=== PATIENT | male | born 1970 | race African-American/Black ===

== ENCOUNTER 2018-03-07 15:23 | Emergency (ER) | payer OTHER ==
[~2018-03-07] VITALS: Ht 175.3 cm; Wt 117.8 kg
[2018-03-07 15:39] VITALS: BP 159/109
--- NOTE | 2018-03-07 15:47 | PHYS DOC ---
Past History Past Medical History: No Pertinent History Past Surgical History: No Surgical History Alcohol Use: None Drug Use: None Adult General Chief Complaint Chief Complaint: FLU SYMPTOM HPI HPI Patient is a 47-year-old male, with a history of "borderline hypertension", who presents to the emergency department for evaluation. He states for the past 5 days he has had nasal congestion, and a cough productive of clear sputum. He has not had any fever or any pain. He denies any significant shortness of breath , nausea, vomiting, otalgia, or shortness of breath. There are no alleviating, or exacerbating factors to his symptoms otherwise. Review of Systems Review of Systems Constitutional: Denies fever or chills [] Eyes: Denies change in visual acuity, redness, or eye pain [] HENT: Denies or sore throat. Does report nasal congestion. [] Respiratory: Denies or shortness of breath [] Cardiovascular:The patient denies any shortness of breath, chest pain, palpitations, or orthopnea [] GI: Denies abdominal pain, nausea, vomiting, bloody stools or diarrhea [] : Denies dysuria or hematuria [] Musculoskeletal: Denies back pain or joint pain [] Integument: Denies rash or skin lesions [] Neurologic: Denies headache, focal weakness or sensory changes [] Allergies Allergies Allergies Coded Allergies Type Severity Reaction Last Updated Verified No Known Drug Allergies 03/07/18 No Physical Exam Physical Exam PHYSICAL EXAM: CONSTITUTIONAL: Well developed, well nourished HEAD: normocephalic, atraumatic EENT: PERRL, EOMI. Conjunctivae normal color, sclerae non-icteric; moist mucous membranes. Tympanic membranes are normal bilaterally. Oropharynx is nonerythematous. Nasal congestion is present. NECK: Supple, non-tender; no meningismus. LUNGS: Lungs CTA, breathing even and unlabored. Normal air movement. HEART: Regular rate and rhythm, no murmur CHEST: No deformity; non-tender ABDOMEN: The abdomen is soft, and non-tender, no masses or bruits. EXTREM: Normal ROM; no deformity, no calf tenderness. Normal pulses palpable in all extremities. There is no pedal edema. SKIN: No rash; no diaphoresis NEURO: Alert; normal speech and cognition; CN's grossly intact; strength grossly intact without focal deficit. BACK: No CVA TTP. Current Patient Data Vital Signs Vital Signs Date Time Temp Pulse Resp B/P (MAP) Pulse Ox O2 Delivery O2 Flow Rate FiO2 03/07/18 15:39 98.3 90 18 95 Room Air EKG EKG [] Radiology/Procedures Radiology/Procedures ER physician preliminary chest x-ray interpretation: Questionable right lower lobe infiltrate.[] Course & Med Decision Making Course & Med Decision Making Discussed expectant management with the patient, the need for close PCP follow- up, and return precautions. I discussed the mildly elevated blood pressure and the need for further outpatient management and recheck of the patient's blood pressure. Dragon Disclaimer Dragon Disclaimer This electronic medical record was generated, in whole or in part, using a voice recognition dictation system. Departure Departure: Impression: Primary Impression: Upper respiratory infection Additional Impression: Pneumonia Disposition: 01 HOME, SELF-CARE Referrals: LALY ELLISON MD (PCP) Patient Instructions: Pneumonia, Adult, Upper Respiratory Infection, Adult Scripts Azithromycin (ZITHROMAX) 250 Mg Tablet 1 PKG PO UD, #6 TAB Prov: TITI MCGREGOR MD 03/07/18 Problem Qualifiers TITI MCGREGOR MD Mar 07, 2018 15:47
--- NOTE | 2018-03-07 15:57 | RAD ---
PA and lateral chest radiograph. History: Cough with weakness for 4-5 days. Comparison: None. Findings: There is suboptimal inspiration. Cardiomediastinal silhouette is within normal limits for size. Bilateral lung gracia appear clear without evidence of infiltrate, effusion, or pneumothorax. Impression: 1. No acute cardiopulmonary process. Electronically signed by: Ervin Burden MD (03/07/2018 3:54 PM) [facility]
[2018-03-07] MEDS ORDERED: AZIT250T PO (16:00)
== END 2018-03-07 16:11 | disposition home or self-care (01) ==
LOC: ER 15:23
DX: J18.9 Pneumonia, unspecified organism (principal); J06.9 Acute upper respiratory infection, unspecified
CPT/HCPCS: 71046; 99284

== ENCOUNTER → 2019-09-15 | Outpatient (CLI) | payer OTHER ==
[~2019-09-15] MED LIST: AZIT250T PO
--- NOTE | 2019-09-15 16:32 | RAD ---
EXAM: Abdomen, 2 views. HISTORY: Pain. COMPARISON: None. FINDINGS: 2 views of the abdomen are obtained. There is gas and moderate stool within the colon. No abnormally dilated loop of bowel is seen. There is no free air. There is no transition point to suggest obstruction. IMPRESSION: Nonobstructive bowel gas pattern. Moderate colonic stool. Electronically signed by: Bobbi Matthews MD (09/15/2019 4:29 PM) [id number]
== END | disposition home or self-care (01) ==
LOC: PMG 11:50
PROVIDERS: ATTEND Physician Assistant
DX: R10.9 Unspecified abdominal pain (principal); M54.5 Low back pain
CPT/HCPCS: 74019

== ENCOUNTER 2021-03-31 09:01 | Emergency (ER) | payer OTHER ==
[~2021-03-31] VITALS: Ht 175.3 cm; Wt 117.8 kg
[2021-03-31 09:12] VITALS: BP 153/84
[2021-03-31] MEDS ORDERED: IV NORMAL SALINE 1,000ML 1,000 ML IV ONE (09:30)
--- NOTE | 2021-03-31 09:38 | PHYS DOC ---
Past History Past Medical History: No Pertinent History (LILLIAM FLEMNIG APRN) Past Surgical History: No Surgical History (LILLIAM FLEMING APRN) Additional Smoking Information: Vapes Alcohol Use: None Drug Use: None (LILLIAM FLEMING APRN) General Adult EDM: Chief Complaint: ABDOMINAL PAIN HPI: HPI: Patient is a 50-year-old male who presents to the ER with bilateral lower abdominal pain that radiates to his right flank started today. Patient rates his pain 7 out of 10. He states that he is taking naproxen at home. He is also reporting dysuria and feeling like he is not completely emptying his bladder along with black stools. Patient denies nausea, vomiting, diarrhea, hematuria. He states that he does not have a history of kidney stones. (LILLIAM FLEMING APRN) Review of Systems: Review of Systems: 14 body systems of the review of systems have been reviewed. See HPI for pertinent positive and negative responses, otherwise all other systems are negative, nonpertinent or noncontributory (LILLIAM FLEMING APRN) Current Medications: Current Meds: Current Medications Medications (Trade) Dose Ordered Sig/Abbie Start Time Stop Time Status Last Admin Dose Admin Fentanyl Citrate (Fentanyl 2ml Vial) 50 mcg 1X ONCE 03/31/21 09:30 03/31/21 09:31 UNV Sodium Chloride 1,000 ml @ 1,000 mls/hr 1X ONCE 03/31/21 09:30 03/31/21 10:29 UNV (LILLIAM FLEMING APRN) Allergies: Allergies: Allergies Coded Allergies Type Severity Reaction Last Updated Verified No Known Drug Allergies 03/07/18 No (LILLIAM FLEMING APRN) Physical Exam: PE: Constitutional: Well developed, well nourished, no acute distress, non-toxic appearance. [] HENT: Normocephalic, atraumatic, bilateral external ears normal, oropharynx moist, no oral exudates, nose normal. [] Eyes: PERRLA, EOMI, conjunctiva normal, no discharge. [] Neck: Normal range of motion, no stridor Cardiovascular:Heart rate regular rhythm, no murmur [] Lungs & Thorax: Bilateral breath sounds clear to auscultation [] Abdomen: Bowel sounds normal, soft, obese, tenderness with palpation to bilateral lower abdomen, no masses, no pulsatile masses, no rebound tenderness, negative Aldridge sign, negative Rovsing sign. [] Skin: Warm, dry, no erythema, no rash. [] Back: No tenderness, right-sided CVA tenderness. [] Extremities: No tenderness, no cyanosis, no clubbing, ROM intact, no edema. [] Neurologic: Alert and oriented X 3, normal motor function, normal sensory function, no focal deficits noted. [] Psychologic: Affect normal, judgement normal, mood normal. [] (LILLIAM FLEMING APRN) Current Patient Data: Labs: Laboratory Tests Test 03/31/21 09:50 03/31/21 10:07 03/31/21 12:10 White Blood Count 8.6 x10^3/uL Red Blood Count 5.01 x10^6/uL Hemoglobin 13.6 g/dL Hematocrit 42.1 % Mean Corpuscular Volume 84 fL Mean Corpuscular Hemoglobin 27 pg Mean Corpuscular Hemoglobin Concent 32 g/dL Red Cell Distribution Width 13.5 % Platelet Count 280 x10^3/uL Neutrophils (%) (Auto) 57 % Lymphocytes (%) (Auto) 29 % Monocytes (%) (Auto) 7 % Eosinophils (%) (Auto) 7 % Basophils (%) (Auto) 1 % Neutrophils # (Auto) 4.9 x10^3uL Lymphocytes # (Auto) 2.4 x10^3/uL Monocytes # (Auto) 0.6 x10^3/uL Eosinophils # (Auto) 0.6 x10^3/uL Basophils # (Auto) 0.1 x10^3/uL Sodium Level 140 mmol/L Potassium Level 4.1 mmol/L Chloride Level 104 mmol/L Carbon Dioxide Level 25 mmol/L Anion Gap 11 Blood Urea Nitrogen 14 mg/dL Creatinine 0.9 mg/dL Estimated GFR (Cockcroft-Gault) 108.1 BUN/Creatinine Ratio 16 Glucose Level 105 mg/dL Calcium Level 9.7 mg/dL Total Bilirubin 0.3 mg/dL Aspartate Amino Transf (AST/SGOT) 16 U/L Alanine Aminotransferase (ALT/SGPT) 20 U/L Alkaline Phosphatase 137 U/L Total Protein 7.6 g/dL Albumin 3.7 g/dL Albumin/Globulin Ratio 0.9 Lipase 136 U/L Stool Occult Blood Negative Urine Collection Type Unknown Urine Color Yellow Urine Clarity Clear Urine pH 5.5 Urine Specific Colony 1.025 Urine Protein Neg Urine Glucose (UA) Neg mg/dL Urine Ketones (Stick) Neg mg/dL Urine Blood Neg Urine Nitrite Neg Urine Bilirubin Neg Urine Urobilinogen Dipstick 0.2 mg/dL Urine Leukocyte Esterase Neg Urine RBC 0 /HPF Urine WBC 0 /HPF Urine Bacteria 0 /HPF Current Medications Medications (Trade) Dose Ordered Sig/Abbie Route PRN Reason Start Time Stop Time Status Last Admin Dose Admin Sodium Chloride 1,000 ml @ 1,000 mls/hr 1X ONCE IV 03/31/21 09:30 03/31/21 10:29 DC 03/31/21 10:54 Fentanyl Citrate (Fentanyl 2ml Vial) 50 mcg 1X ONCE IVP 03/31/21 09:30 03/31/21 09:36 DC Laboratory Tests Test 03/31/21 09:50 03/31/21 10:07 White Blood Count 8.6 x10^3/uL Red Blood Count 5.01 x10^6/uL Hemoglobin 13.6 g/dL Hematocrit 42.1 % Mean Corpuscular Volume 84 fL Mean Corpuscular Hemoglobin 27 pg Mean Corpuscular Hemoglobin Concent 32 g/dL Red Cell Distribution Width 13.5 % Platelet Count 280 x10^3/uL Neutrophils (%) (Auto) 57 % Lymphocytes (%) (Auto) 29 % Monocytes (%) (Auto) 7 % Eosinophils (%) (Auto) 7 % Basophils (%) (Auto) 1 % Neutrophils # (Auto) 4.9 x10^3uL Lymphocytes # (Auto) 2.4 x10^3/uL Monocytes # (Auto) 0.6 x10^3/uL Eosinophils # (Auto) 0.6 x10^3/uL Basophils # (Auto) 0.1 x10^3/uL Sodium Level 140 mmol/L Potassium Level 4.1 mmol/L Chloride Level 104 mmol/L Carbon Dioxide Level 25 mmol/L Anion Gap 11 Blood Urea Nitrogen 14 mg/dL Creatinine 0.9 mg/dL Estimated GFR (Cockcroft-Gault) 108.1 BUN/Creatinine Ratio 16 Glucose Level 105 mg/dL Calcium Level 9.7 mg/dL Total Bilirubin 0.3 mg/dL Aspartate Amino Transf (AST/SGOT) 16 U/L Alanine Aminotransferase (ALT/SGPT) 20 U/L Alkaline Phosphatase 137 U/L Total Protein 7.6 g/dL Albumin 3.7 g/dL Albumin/Globulin Ratio 0.9 Lipase 136 U/L Stool Occult Blood Negative Current Medications Medications (Trade) Dose Ordered Sig/Abbie Route PRN Reason Start Time Stop Time Status Last Admin Dose Admin Sodium Chloride 1,000 ml @ 1,000 mls/hr 1X ONCE IV 03/31/21 09:30 03/31/21 10:29 DC 03/31/21 10:54 Fentanyl Citrate (Fentanyl 2ml Vial) 50 mcg 1X ONCE IVP 03/31/21 09:30 03/31/21 09:36 DC Vital Signs: Vital Signs Date Time Temp Pulse Resp B/P (MAP) Pulse Ox O2 Delivery O2 Flow Rate FiO2 03/31/21 09:12 97.9 98 16 153/84 (107) 98 Room Air (LILLIAM FLEMING APRN) EKG: EKG: [] (LILLIAM FLEMING APRN) Radiology/Procedures: Radiology/Procedures: []PROCEDURE: CT ABDOMEN PELVIS WO CONTRAST EXAMINATION: CT abdomen and pelvis without IV contrast. INDICATION:50 years, Male, bilateral flank pain. TECHNIQUE: Axial CT images of the abdomen and pelvis were obtained. Coronal and sagittal reformatted performed. COMPARISON: None. Exposure: One or more of the following individualized dose reduction techniques were utilized for this examination: 1. Automated exposure control 2. Adjustment of the mA and/or kV according to patient size 3. Use of iterative reconstruction technique. FINDINGS: LOWER CHEST: Unremarkable. ABDOMEN/PELVIS: Within the limitation of noncontrast exam, No hydronephrosis or nephrolithiasis in either kidney. Unremarkable urinary bladder. Prostatomegaly indents bladder base. Normal size and morphology of the liver. There is an ill-defined 2.1 cm hypoattenuating lesion in subcapsular hepatic segment 5/6 (series 2 image 32). Subcentimeter hypodensity in the right hepatic lobe, too small to characterize. Gallbladder, biliary ducts, spleen and pancreas are unremarkable. Nodular thickening of the adrenal glands without dis crete nodule. No bowel obstruction or wall thickening. Few colonic diverticulosis without diverticulitis. Normal appendix. Normal caliber abdominal aorta. No lymphadenopathy in the abdomen or pelvis by size criteria. Nonspecific nonenlarged bilateral pelvic lymph nodes. No pneumoperitoneum or ascites. MUSCULOSKELETAL: Small fat-containing umbilical hernia. No acute osseous process. Mild degenerative changes in the lumbar spine. IMPRESSION: 1. No obstructive uropathy or urolithiasis. 2. Indeterminate 2.1 cm hypoattenuating lesion in the subcapsular hepatic segment 5/6. Recommend nonemergent MRI abdomen with contrast for further evaluation. 3. Prostatomegaly. Consider correlation with PSA level. Electronically signed by: Aydee Monge MD (03/31/2021 10:26 AM) [facility] DICTATED AND SIGNED BY: AYDEE MONGE MD DATE: 03/31/21 1018 CC: LINDY OWENS; LILLIAM FLEMING APRN ~MTH0 0 (LILLIAM LFEMING APRN) Heart Score: C/O Chest Pain: No Risk Factors: Risk Factors: DM, Current or recent (<one month) smoker, HTN, HLP, family history of CAD, obesity. Risk Scores: Score 0 - 3: 2.5% MACE over next 6 weeks - Discharge Home Score 4 - 6: 20.3% MACE over next 6 weeks - Admit for Clinical Observation Score 7 - 10: 72.7% MACE over next 6 weeks - Early Invasive Strategies (LILLIAM FLEMING APRN) Course & Med Decision Making: Course & Med Decision Making Pertinent Labs and Imaging studies reviewed. (See chart for details) [] Patient is a 50-year-old male being seen in the ER for bilateral lower abdominal pain that radiates to his right leg with dysuria, black stools, feeling like he is not completely emptying his bladder. Work-up in the ER consisted of blood work, urinalysis, CT imaging of abdomen, fecal occult. 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 Rectal exam performed and no gross blood noted, fecal occult sent to lab, external hemorrhoid noted. Work-up in the ER is unremarkable. Patient was noted to have post Dapto medically and a 2.1 cm lesion in his liver. Patient was advised to follow-up with his primary care provider regarding further evaluation of these findings. Patient advised to take naproxen at home for his pain and increase his fluids. I discussed with patient all findings and diagnostic testing as well as the need to follow-up with PCP for further evaluation and treatment or return to the ER if any new or worsening symptoms. Strict return precautions were also discussed at length. Patient voiced understanding and agreement with the plan. Patient is hemodynamically stable at the time of disposition. (LILLIAM FLEMING APRN) Stacyon Disclaimer: Nina Disclaimer: This electronic medical record was generated, in whole or in part, using a voice recognition dictation system. (LILLIAM FLEMING APRN) Attending Co-Sign The patient was seen and interviewed as well as examined at the bedside. The chart was reviewed. The case was discussed. Agree with the plan of care. (DALLIN CAIN DO) Departure Departure: Impression: Primary Impression: Abdominal pain Qualified Codes: R10.30 - Lower abdominal pain, unspecified Disposition: HOME / SELF CARE / HOMELESS Condition: GOOD Referrals: LINDY OWENS (PCP) Patient Instructions: Abdominal Pain Additional Instructions: You were seen in the ER today for abdominal pain. Your work-up was unremarkable. Your CT did show an enlarged prostate and a lesion on your liver which the radiologist recommended following up with your primary care provider. You can continue taking the naproxen for your pain as you stated it does improve your symptoms. Increase your fluids. Follow-up with your primary care provider tomorrow regarding your ER visit. You may benefit from avoiding fatty greasy or spicy foods over the next 48 hours. You can eat a bland diet, we recommend a brat diet which includes bananas, rice, applesauce or toast over the next 48 hours. Return to the ER if you develop worsening of your abdominal pain, intractable nausea or vomiting, high fevers refractory to treatment, blood in your stools or vomit. EMERGENCY DEPARTMENT GENERAL DISCHARGE INSTRUCTIONS Thank you for coming to [facility] (ED) today and trusting us with you care. We trust that you had a positivie experience in our Emergency Department. If you wish to speak to the department management, you may call the director at [phone]. YOUR FOLLOW UP INSTRUCTIONS ARE FOLLOWS: 1. Do you have a private Doctor? If you do not have a private doctor, please ask for a resource list of physicians or clinics that may be able to assist you with follow up care. 2. The Emergency Physician has interpreted your x-rays. The X-Ray specialist will also review them. If there is a change in the findings, you will be notified in 48 hours when at all possible. 3. A lab test or culture has been done, your results will be reviewed and you will be notified if you need a change in treatment. ADDITIONAL INSTRUCTIONS AND INFORMATION: 1. Your care today has been supervised by a physician who is specially trained in emergency care. Many problems require more than one evaluation for a complete diagnosis and treatment. We recommend that you schedule your follow up appointment as recommended to ensure complete treatment of you illness or injury. If you are unable to obtain follow up care and continue to have a problem, or if your condition worsens, we recommend that you return to the ED. 2. We are not able to safely determine your condition over the phone nor are we able to give sound medical advice over the phone. For these safety reasons, if you call for medical advice we will ask you to come to the ED for further evaluation. 3. If you have any questions regarding these discharge instructions please call the ED at [phone]. SAFETY INFORMATION: In the interest of safety, wellness, and injury prevention; we encourage you to wear your sealbelt, if you smoke; quite smoking, and we encourage family to use a protective helmet for bicycling and other sporting events that present an increased risk for head injury. IF YOUR SYMPTOMS WORSEN OR NEW SYMPTOMS DEVELOP, OR YOU HAVE CONCERNS ABOUT YOUR CONDITION; OR IF YOUR CONDITION WORSENS WHILE YOU ARE WAITING FOR YOUR FOLLOW UP APPOINTMENT; EITHER CONTACT YOUR PRIMARY CARE DOCTOR, THE PHYSICIAN WHOSE NAME AND NUMBER YOU WERE GIVEN, OR RETURN TO THE ED IMMEDIATELY. LILLIAM FLEMING APRN Mar 31, 2021 09:38 DALLIN CAIN DO Mar 31, 2021 17:09
[2021-03-31 10:07] LABS: BASO # 0.1 x10^3/uL (0.0-0.2); BASO % 1 % (0-3); EOS # 0.6 x10^3/uL (0.0-0.7); EOS % 7 % (0-3); HEMATOCRIT 42.1 % (39.0-53.0); HEMOGLOBIN 13.6 g/dL (13.0-17.5); LYMPH # 2.4 x10^3/uL (1.0-4.8); LYMPH % 29 % (24-48); MEAN CORPUSCULAR HEMOGLOBIN 27 pg (25-35); MEAN CORPUSCULAR HGB CONC 32 g/dL (31-37); MEAN CORPUSCULAR VOLUME 84 fL (79-100); MONO # 0.6 x10^3/uL (0.0-1.1); MONO % 7 % (0-9); NEUT # 4.9 x10^3uL (1.8-7.7); NEUT % 57 % (31-73); PLATELET COUNT 280 x10^3/uL (140-400); RED BLOOD COUNT 5.01 x10^6/uL (4.30-5.70); RED CELL DISTRIBUTION WIDTH 13.5 % (11.5-14.5); WHITE BLOOD COUNT 8.6 x10^3/uL (4.0-11.0)
[2021-03-31 10:13] LABS: CALCIUM 9.7 mg/dL (8.5-10.1); CREATININE 0.9 mg/dL (0.7-1.3); GFR 108.1; POTASSIUM 4.1 mmol/L (3.5-5.1)
[2021-03-31 10:19] LABS: ALBUMIN 3.7 g/dL (3.4-5.0); ALBUMIN/GLOBULIN RATIO 0.9 (1.0-1.7); TOTAL BILIRUBIN 0.3 mg/dL (0.2-1.0); TOTAL PROTEIN 7.6 g/dL (6.4-8.2)
[2021-03-31 10:26] LABS: FECAL OB PT NEGATIVE (NEG)
--- NOTE | 2021-03-31 10:28 | RAD ---
EXAMINATION: CT abdomen and pelvis without IV contrast. INDICATION:50 years, Male, bilateral flank pain. TECHNIQUE: Axial CT images of the abdomen and pelvis were obtained. Coronal and sagittal reformatted performed. COMPARISON: None. Exposure: One or more of the following individualized dose reduction techniques were utilized for thi s examination: 1. Automated exposure control 2. Adjustment of the mA and/or kV according to patient size 3. Use of iterative reconstruction technique. FINDINGS: LOWER CHEST: Unremarkable. ABDOMEN/PELVIS: Within the limitation of noncontrast exam, No hydronephrosis or nephrolithiasis in either kidney. Unremarkable urinary bladder. Prostatomegaly i ndents bladder base. Normal size and morphology of the liver. There is an ill-defined 2.1 cm hypoatte nuating lesion in subcapsular hepatic segment 5/6 (series 2 image 32). Subcentimeter hypodensity in t he right hepatic lobe, too small to characterize. Gallbladder, biliary ducts, spleen and pancreas are unremarkable. Nodular thickening of the adrenal glands without discrete nodule. No bowel obstruction or wall thickening. Few colonic diverticulosis without diverticulitis. Normal ap pendix. Normal caliber abdominal aorta. No lymphadenopathy in the abdomen or pelvis by size criteria. Nonspecific nonenlarged bilateral pelvic lymph nodes. No pneumoperitoneum or ascites. MUSCULOSKELETAL: Small fat-containing umbilical hernia. No acute osseous process. Mild degenerative changes in the lum bar spine. IMPRESSION: 1. No obstructive uropathy or urolithiasis. 2. Indeterminate 2.1 cm hypoattenuating lesion in the subcapsular hepatic segment 5/6. Recommend non emergent MRI abdomen with contrast for further evaluation. 3. Prostatomegaly. Consider correlation with PSA level. Electronically signed by: Alex Monge MD (03/31/2021 10:26 AM) [facility]
[2021-03-31 12:36] LABS: BACTERIA,URINE 0 /HPF (0-FEW); BILIRUBIN,URINE NEG (NEG); CLARITY,URINE CLEAR; COLOR,URINE YELLOW; GLUCOSE,URINE NEG (NEG); NITRITE,URINE NEG (NEG); RBC,URINE 0 /HPF (0-2); UROBILINOGEN,URINE 0.2 mg/dL (0.2 mg/dL); WBC,URINE 0 /HPF (0-4)
== END 2021-03-31 13:03 | disposition home or self-care (01) ==
LOC: ER 09:01
DX: R10.31 Right lower quadrant pain (principal); R10.32 Left lower quadrant pain; R30.0 Dysuria; F17.200 Nicotine dependence, unspecified, uncomplicated
CPT/HCPCS: 36415; 74176; 80053; 81001; 82274; 83690; 85025; 96360; 99284; J7030